=== PATIENT | male | born 1965 | race Two or more races ===

== ENCOUNTER 2023-05-09 08:19 | Outpatient (REF) | payer MEDICAID, SELFPAY ==
[2023-05-09 09:47] LABS: Anion Gap 10 (12-20); Blood Urea Nitrogen 15 mg/dL (9-16); Calcium 8.7 mg/dL (8.4-10.2); Carbon Dioxide 28 mmol/L (22-29); Chloride 105 mmol/L (96-108); Estimated Glomerular Filt Rate > 60; Glucose Random 82 mg/dL (60-115); Potassium 4.2 mmol/L (3.3-5.1); Sodium 139 mmol/L (135-145)
== END 2023-05-09 08:20 | disposition home or self-care (01) ==
LOC: HO.LAB 08:19
PROVIDERS: PCP Internal Medicine Geriatric Medicine; Visit Provider Internal Medicine Geriatric Medicine
DX: I10 Essential (primary) hypertension (principal)
CPT/HCPCS: 36415; 80048

== ENCOUNTER 2023-09-29 08:24 | Outpatient (REF) | payer MEDICAID, SELFPAY ==
[2023-09-29 11:19] LABS: MANUAL DIFF FLAG NO
[2023-09-29 11:36] LABS: Basophils Absolute Auto 0.1 X10*3/uL (0.0-0.2); Eosinophils Absolute Auto 0.1 X10*3/uL (0.0-0.4); Eosinophils Percent Auto 1.6 % (0-4); Hemoglobin 15.2 g/dl (14.0-18.0); Imm Gran Abs Auto 0.02 X10*3/uL (0.00-0.03); Imm Gran Pct Auto 0.3 % (0.0-0.4); Lymphocytes Absolute Auto 2.3 X10*3/uL (1.2-4.9); Lymphocytes Percent Auto 29.8 % (20-40); Mean Corpuscular HGB Conc 34.5 g/dl (31.0-36.0); Mean Corpuscular Hemoglobin 30.7 pg (27.0-33.0); Mean Corpuscular Volume 88.9 fL (80.0-98.0); Mean Platelet Volume 11.6 fL (9.4-12.4); Monocytes Absolute Auto 0.7 X10*3/uL (0.1-1.2); Monocytes Percent Auto 8.7 % (2-11); Neutrophils Absolute Auto 4.5 x10*3/uL (2.0-8.3); Neutrophils Percent Auto 58.6 % (45-73); Platelet Count 210 X10*3/uL (160-400); Red Blood Count 4.95 X10*6/uL (4.60-5.80); Red Cell Distribution Width 13.5 % (11.0-16.0); White Blood Count 7.7 X10*3/uL (4.8-10.8)
[2023-09-29 12:00] LABS: Alanine Aminotransferase 30 U/L (0-40); Albumin Level 4.3 g/dL (3.5-5.0); Alkaline Phosphatase 49 U/L (39-117); Anion Gap 12 (12-20); Aspartate Amino Transferase 24 U/L (5-37); Bilirubin Total 0.6 mg/dL (0.0-1.0); Blood Urea Nitrogen 14 mg/dL (9-16); Calcium 8.9 mg/dL (8.4-10.2); Carbon Dioxide 23 mmol/L (22-29); Chloride 106 mmol/L (96-108); Cholesterol 198 mg/dL (<200); Estimated Glomerular Filt Rate > 60; Glucose Random 97 mg/dL (60-115); HDL Cholesterol 55 mg/dL (>40); LDL Cholesterol Calculated 120 mg/dL (<100); Potassium 3.9 mmol/L (3.3-5.1); Sodium 137 mmol/L (135-145); Total Protein 7.3 g/dL (6.5-8.0); Triglycerides 116 mg/dL (<150)
[2023-09-29 12:06] LABS: Prostate Specific Antigen 0.83 ng/mL (<0.05-4.0)
== END 2023-09-29 08:25 | disposition home or self-care (01) ==
LOC: HO.HHCL 08:24
PROVIDERS: Visit Provider Internal Medicine Geriatric Medicine
DX: Z12.5 Encounter for screening for malignant neoplasm of prostate (principal); R73.03 Prediabetes; I10 Essential (primary) hypertension
CPT/HCPCS: 36415; 80053; 80061; 84153; 85025

== ENCOUNTER 2024-06-19 08:31 | Outpatient (REF) | payer MEDICAID, SELFPAY ==
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
--- OUTSIDE RECORDS SUMMARY | 2024-06-19 09:12 | XMS_ITS | Encounter Summary ---
Author Organization [employer] Address [address] [facility] [address] 7[address] [place] [address] Care Team Providers Care Speech Language Therapist Name Role Phone Name, Lakhwinder ALAN Primary Care Provider [phone] Encounter Details Date Type Department Care Team ([facility] st Contact Info) Description 05/31/2024 Telephone [facility] MEDICINE [address] [place], [place] [phone] Shaina Bustos, RN [address] [place], [place] [phone] Social History Tobacco Use Types Packs/Day Years [...] AM EDT documented as of this encounter Miscellaneous Notes * Telephone Encounter - Shaina Bustos RN - 05/31/2024 11:26 AM EST ----- Message from Tiffani Keating sent at 05/30/2024 10:43 AM EST ----- Regarding: as FYI Patient is scheduled for 06/12/2024 at 11:30am with . SHEEBA Nixon placed a call to patient for PVP screening and Adeline patient's 's concern is that patient self harm. Per , Patient banging forehead against the wall and had a laceration. wanted to talk to PCP about it in visit but wifeknows if she mention it in front of patient, patient will be mad at . Also patient's stated patient had a therapist one year in a half ago but the therapist left practice, is requesting to see if patient can have a therapist due to patient might be having depression. Patient and wifeis currently in [place] brief writer is not sure when they are returning to [place]. A separatemessage was sent to [facility] as well. T/C returned to pt's for status check and to encourage pt to seek care in current location. Dorinda, v/m left to return call to export team nurses. documented in this encounter Plan of Treatment Upcoming Encounters Date Type Department Care Team (Late st Contact Info) Description 06/25/2024 10:30 AM EST Telemedicine [facility] MEDICINE [address] [place] [address] documented as of this encounter Visit Diagnoses Not on filedocumented in this encounter Additional Health Concerns Assessment Noted Time PHQ-9 Depression Total Score: 0 10/23/19 24 9:09 AM EDT documented as of this encounter Care Teams Speech Language Therapist Relationship Specialty Start Date End Date Name, MD Lakhwinder [address] [place] [address] PCP - General Family Medicine 07/30/21 documented as of this encounter
--- OUTSIDE RECORDS SUMMARY | 2024-06-19 09:12 | XMS_ITS | Encounter Summary ---
Author Organization [employer] Address [address] [facility] [address] [place] [address] Care Team Providers Care Giving Officer Name Role Phone Name, Lakhwinder ALAN Primary Care Provider [phone] Reason for Visit * Reason Comments Med Refill Encounter Details Date Type Department Care Team ([facility] st Contact Info) Description 05/28/2024 Refill [facility] MEDICINE [address] [place], [place] [phone] Name, MD Lakhwinder [address] [place], [place] [phone] Mixed hyperlipidemia Social History Tobacco Use Types Packs/Day Years [...] Access Answer Date Recorded Internet Access Q1 No 01/07/2024 Internet Access Q2 I do not want or need it 05/2023 Sex and Gender Information Value Date Recorded Sex Assigned at Male 03/07/2022 10:32 AM EDT Legal Sex Male 10:32 AM EDT Gender Identity Male 03/07/2022 10:32 AM EDT Sexual Orientation Straight 03/07/2022 10 :32 AM EDT documented as of this encounter Plan of Treatment Upcoming Encounters Date Type Department Care Team (Late st Contact Info) Description 06/25/2024 10:30 AM EST Telemedicine [facility] MEDICINE [address] [place] [address] documented as of this encounter Visit Diagnoses Diagnosis Mixed hyperlipidemia documented in this encounter Additional Health Concerns Assessment Noted Time PHQ-9 Depression Total Score: 0 10/23/19 24 9:09 AM EDT documented as of this encounter Care Teams Giving Officer Relationship Specialty Start Date End Date Name, MD Lakhwinder [address] [place] [address] PCP - General Family Medicine 07/30/21 documented as of this encounter
--- OUTSIDE RECORDS SUMMARY | 2024-06-19 09:12 | XMS_ITS | Encounter Summary ---
Author Organization [employer] Address [address] [facility] 7[address] [place] [address] Care Team Providers Care Tension Worker Name Role Phone Name, Lakhwinder ALAN Primary Care Provider [phone] Reason for Visit * Reason Comments Pre-visit Planning SDOH Screening negat agnela and Tobacco screening negative Encounter Details Date Type Department Care Team (Late st Contact Info) Description 05/30/2024 Patient Outreach [facility] MEDICINE [address] [place], [place] [phone] Name, MD Lakhwinder [address] [place], [place] [phone] Pre-visit Planning (SDOH Screening negative and Tobacco screening negative) Social History Tobacco Use Types Packs/Day Years [...] AM EDT documented as of this encounter Progress Notes * Tiffani Conn - 05/30/2024 10:09 AM EST SHEEBA Orozco placed successful outbound call to patient for pre-visit planning. Patient name and confirmed. Patient confirms appt date and time, and has transportation arrangements. Biggest concern for appointment at this time is per patient self harm. Patient banging forehead against the wall and had a laceration. wanted to talk to PCP about it in visit but knows if she mention it in front of patient, patient will be mad at . Also patient's stated patient had a therapist one year in a half ago but the therapist left practice, is requesting to see if patient can have a therapist due to patient might be having depression. Message will be sent to 's nurses and also Tiera GUTIERREZ to follow up with patient. Patient advised to bring to appointment a photo id and insurance card. Appropriate screenings completed in anticipation of appointment. documented in this encounter Plan of Treatment Upcoming Encounters Date Type Department Care Team (Late st Contact Info) Description 06/25/2024 10:30 AM EST Telemedicine [facility] MEDICINE [address] [place] [address] documented as of this encounter Visit Diagnoses Not on filedocumented in this encounter Additional Health Concerns Assessment Noted Time PHQ-9 Depression Total Score: 0 10/23/19 24 9:09 AM EDT documented as of this encounter Care Teams Tension Worker Relationship Specialty Start Date End Date Name, MD Lakhwinder [address] [place] [address] PCP - General Family Medicine 07/30/21 documented as of this encounter
--- OUTSIDE RECORDS SUMMARY | 2024-06-19 09:12 | XMS_ITS | Encounter Summary ---
Author Organization [employer] Address [address] [facility] 7t [place] [address] Care Team Providers Care Private Eye Name Role Phone Name, Lakhwinder ALAN Primary Care Provider [phone] Encounter Details Date Type Department Care Team (Late st Contact Info) Description 10/07/[address] [phone] Name, MD Lakhwinder [address] [place] [phone] Social History Tobacco Use Types Packs/Day Years Used Date Smoking Tobacco: Never Smokeless Tobacco: Never Depression Answer Date Recorded Patient Health Questionnaire-2 Score 0 06/29/2022 Sex and Gender Information Value Date Recorded Sex Assigned at Male 03/07/2022 10:32 AM EDT Legal Sex Male 10:32 AM EDT Gender Identity Male 03/07/2022 10:32 AM EDT Sexual Orientation Straight 03/07/2022 10 :32 AM EDT documented as of this encounter Plan of Treatment Upcoming Encounters Date Type Department Care Team (Late st Contact Info) Description 06/25/2024 10:30 AM EST Telemedicine [address] [phone] documented as of this encounter Procedures Procedure Name Priority Date/Time Associated Diagnosis Comments HM COLONOSCOPY Routine 08/11/2022 8:20 AM EDT documented in this encounter Results * Hm Colonoscopy (08/11/2022 8:20 AM EDT) Colonoscopy Normal Normal Narrative Lorene Ga - 08/11/2022 8:20 AM EDT Recommended 5 year follow up us Historical Provider HEALTH MAINTENANCE Final Result documented in this encounter Visit Diagnoses Not on filedocumented in this encounter Care Teams Private Eye Relationship Specialty Start Date End Date Name, MD Lakhwinder [address] [place] [address] PCP - General Family Medicine 07/30/21 documented as of this encounter
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
--- OUTSIDE RECORDS SUMMARY | 2024-06-19 09:13 | XMS_ITS | Encounter Summary ---
Author Organization [employer] Address [address] [facility] [address] [place] [address] Care Team Providers Care Egg Worker Name Role Phone Name, Lakhwinder ALAN Primary Care Provider [phone] Reason for Visit * Reason Onset Date Comments Nurse Triage 06/13/2024 Encounter Details Date Type Department Care Team ([facility] st Contact Info) Description 06/13/2024 Telephone [facility] MEDICINE [address] [place], [place] [phone] Name, MD Lakhwinder [address] [place], [place] [phone] Nurse Triage Social History Tobacco Use Types Packs/Day Years [...] encounter Miscellaneous Notes * Telephone Encounter - Danyelle Pak RN - 06/13/2024 1:02 PM EST TC placed to pt. Spoke to pt . Informed of PCP message, I will add hydrochlorothiazide to his meds, continue on the same dose of lisinopril and keep checking BP at home. Pt asked if he should stop lisinopril. Advised her that the pt should continue taking the lisinopril and that the provider is adding hydrochlorothiazide. Advised to continue checking BP at home. Pt verbalized understanding and denies questions or concerns at this time. * Telephone Encounter - Lakhwinder Schaefer MD - 06/13/2024 12:16 PM EST I will add hydrochlorothiazide to his meds, continue on the same dose of lisinopril and keep checking BP at home * Telephone Encounter - Brook Turner RN - 06/13/2024 12:06 PM EST Called pt. . Pt. Saw PCP yesterday and was given a BOP cuff to monitor. This am BP 158/97 at 1130am BP is 165/107- pulse 70. No sx. At all. No chest pain, no dizziness, no headache. Pt. Is currently on Lisinopril 10mg once daily in early am. Pt. Takes BP medications between 3-4am. Pt. wondering if BP med should be increased even though pt. Was supposed to monitor BP for 1 week. Please adv ise and have blue team nurse call back with decision. Protocol Used: Blood Pressure - High (Adult) Protocol-Based Disposition: See in Office or Video Visit within 3 Days Video visit not offered Positive Triage Question: * Systolic BP >= 160 OR Diastolic >= 100 * All higher-acuity triage questions were negative * Telephone Encounter - Priya Valdez - 06/13/2024 11:48 AM EST Symptom: High Blood Pressure - Caller Reports Outcome: Schedule an urgent appointment (within 1 hour) or talk to a nurse or provider soon Reason: Getting worse The caller accepted this outcome. Pt spouse Adeline reported pt blood pressure production planner was at 158/97. She recheck bp 20 minutes agoand it is at 164/107. No symptoms. Contact Adeline at [phone] documented in this encounter Plan of Treatment Upcoming Encounters Date Type Department Care Team (Late st Contact Info) Description 06/25/2024 10:30 AM EST Telemedicine [facility] MEDICINE [address] [place] [address] documented as of this encounter Visit Diagnoses Not on filedocumented in this encounter Additional Health Concerns Assessment Noted Time PHQ-9 Depression Total Score: 0 10/23/19 24 9:09 AM EDT documented as of this encounter Care Teams Egg Worker Relationship Specialty Start Date End Date Name, MD Lakhwinder [address] [place] [address] PCP - General Family Medicine 07/30/21 documented as of this encounter
--- OUTSIDE RECORDS SUMMARY | 2024-06-19 09:13 | XMS_ITS | Encounter Summary ---
Author Organization [employer] Address [address] [place] [address] Care Team Providers Care Pile Fabric Knitter Name Role Phone Name, Lakhwinder ALAN Primary Care Provider [phone] Encounter Details Date Type Department Care Team (Latest Contact Info) Description 06/12/2024 Travel Social History Tobacco Use Types Packs/Day Years [...] Info) Description 06/25/2024 10:30 AM EST Telemedicine [facility] [address] [place] [address] documented as of this encounter Visit Diagnoses Not on filedocumented in this encounter Additional Health Concerns Assessment Noted Time PHQ-9 Depression Total Score: 0 10/23/19 24 9:09 AM EDT documented as of this encounter Care Teams Pile Fabric Knitter Relationship Specialty Start Date End Date Name, MD Lakhwinder [address] [place] [address] PCP - General Family Medicine 07/30/21 documented as of this encounter
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
[2024-06-20 14:16] LABS: MANUAL DIFF FLAG NO
[2024-06-20 14:27] LABS: Basophils Absolute Auto 0.1 X10*3/uL (0.0-0.2); Basophils Percent Auto 1.2 % (0-2); Eosinophils Absolute Auto 0.1 X10*3/uL (0.0-0.4); Eosinophils Percent Auto 1.9 % (0-4); Hematocrit 46.1 % (42.0-52.0); Hemoglobin 15.5 g/dl (14.0-18.0); Imm Gran Abs Auto 0.04 X10*3/uL (0.00-0.03); Imm Gran Pct Auto 0.6 % (0.0-0.4); Lymphocytes Absolute Auto 2.5 X10*3/uL (1.2-4.9); Lymphocytes Percent Auto 37.1 % (20-40); Mean Corpuscular HGB Conc 33.6 g/dl (31.0-36.0); Mean Corpuscular Hemoglobin 30.2 pg (27.0-33.0); Mean Corpuscular Volume 89.9 fL (80.0-98.0); Monocytes Absolute Auto 0.7 X10*3/uL (0.1-1.2); Monocytes Percent Auto 11.1 % (2-11); Neutrophils Absolute Auto 3.2 x10*3/uL (2.0-8.3); Neutrophils Percent Auto 48.1 % (45-73); Platelet Count 198 X10*3/uL (160-400); Red Blood Count 5.13 X10*6/uL (4.60-5.80); Red Cell Distribution Width 13.3 % (11.0-16.0); White Blood Count 6.7 X10*3/uL (4.8-10.8)
[2024-06-20 14:40] LABS: Alanine Aminotransferase 32 U/L (0-40); Albumin Level 4.3 g/dL (3.5-5.0); Alkaline Phosphatase 49 U/L (39-117); Anion Gap 11 (12-20); Aspartate Amino Transferase 32 U/L (5-37); Bilirubin Total 0.6 mg/dL (0.0-1.0); Blood Urea Nitrogen 10 mg/dL (9-16); Calcium 9.1 mg/dL (8.4-10.2); Carbon Dioxide 28 mmol/L (22-29); Chloride 103 mmol/L (96-108); Cholesterol 177 mg/dL (<200); Estimated Glomerular Filt Rate > 60; Glucose Random 82 mg/dL (60-115); HDL Cholesterol 48 mg/dL (>40); LDL Cholesterol Calculated 107 mg/dL (<100); Potassium 4.8 mmol/L (3.3-5.1); Sodium 137 mmol/L (135-145); Total Protein 7.5 g/dL (6.5-8.0); Triglycerides 110 mg/dL (<150)
[2024-06-20 14:49] LABS: Creatinine Urine 53.37 mg/dL; Microalbumin Urine < 5.0 mg/L
== END 2024-06-19 08:32 | disposition home or self-care (01) ==
LOC: HO.CHCLDS 08:31
PROVIDERS: Visit Provider Internal Medicine Geriatric Medicine
DX: I10 Essential (primary) hypertension (principal); E78.00 Pure hypercholesterolemia, unspecified
CPT/HCPCS: 36415; 80053; 80061; 82043; 82570; 85025

== ENCOUNTER 2024-07-01 08:40 | Outpatient (REF) | payer MEDICAID, SELFPAY ==
--- OUTSIDE RECORDS SUMMARY | 2024-07-01 09:10 | XMS_ITS | Encounter Summary ---
Author Organization [employer] Address [address] 7t [place] [address] Care Team Providers Care Software Solutions Architect Name Role Phone Name, Lakhwinder ALAN Primary Care Provider [phone] Encounter Details Date Type Department Care Team (Late st Contact Info) Description 10/07/[address] [phone] Name, MD Lakhwinder [address] [place] [address] [phone] Social History Tobacco Use Types Packs/Day Years [...] Care Team (Late st Contact Info) Description 07/04/2024 1:30 PM EST Clinical Support [address] [phone] documented as of this encounter Procedures Procedure [...] on filedocumented in this encounter Care Teams Software Solutions Architect Relationship Specialty Start Date End Date Name, MD Lakhwinder [address] [place] [address] PCP - General Family Medicine 07/30/21 documented as of this encounter
--- OUTSIDE RECORDS SUMMARY | 2024-07-01 09:10 | XMS_ITS | Encounter Summary ---
Author Organization [employer] Address [address] [facility] 7t [place] [address] Care Team Providers Care Four Slide Machine Operator Name Role Phone Name, Lakhwinder ALAN Primary Care Provider Reason for Visit * Reason Onset Date Comments Nurse Triage 06/13/2024 Encounter Details Date Type Department Care Team ([facility] st Contact Info) Description 06/13/2024 Telephone [facility] [address] [place], [place] [phone] Name, MD Lakhwinder [address] [place], [place] [phone] Nurse Triage Social History Tobacco Use Types [...] Pt spouse Adeline reported pt blood pressure legal summer intern was at 158/97. She recheck bp 20 minutes agoand it is at 164/107. No symptoms. Contact Adeline at [phone] documented in this encounter Plan of Treatment Upcoming Encounters Date Type Department Care Team (Late st Contact Info) Description 07/04/2024 1:30 PM EST Clinical Support [facility] [address] [place] [address] documented as of this encounter Visit Diagnoses Not on filedocumented in this encounter Additional Health Concerns Assessment Noted Time PHQ-9 Depression Total Score: 0 10/23/19 24 9:09 AM EDT documented as of this encounter Care Teams Four Slide Machine Operator Relationship Specialty Start Date End Date Name, MD Lakhwinder [address] [place] [address] PCP - General Family Medicine 07/30/21 documented as of this encounter
--- OUTSIDE RECORDS SUMMARY | 2024-07-01 09:10 | XMS_ITS | Encounter Summary ---
Author Organization [email or web address] Address [address] [facility] 7t [place] [address] Care Team Providers Care Clay Hoister Name Role Phone NameLakhwinder MD Primary Care Provider [phone] Reason for Referral * Consultation (Routine) - Closed Specialty Diagnoses / Procedures Referred By Beatriz t Referred To Contact Behavioral Health Diagnoses Anxiety Lakhwinder Schaefer MD [address] [place] [address] Phone: tel: fax: Referral ID Status Reason Start Date Expiration Date V isits Requested Visits Authorized [id number] Closed Specialty Services Required 06/12/2024 06/12/2025 1 1 Reason for Visit * Reason Comments Follow-up Encounter Details Date Type Department Care Team (Late st Contact Info) Description 06/12/2024 11:30 AM EST Office Visit [facility] [address] [place], [place] [phone] Lakhwinder Schaefer MD [address] [place], [place] [phone] HTN (hypertension), benign (Primary Dx); High cholesterol; [...] Description 07/04/2024 1:30 PM EST Clinical Support [facility] [address] [place] [phone] Scheduled Referrals Name Type Priority Associated Diagnoses Order Schedule Referral to Behavioral Health Outpatient Referral Routine Anxiety Expected: 06/12/2024 (Approximate), Expires: 06/12/2025 documented as of this encounter Procedures Procedure Name Priority Date/Time Associated Diagnosis Comments ALBUMIN, RANDOM URINE W/CREATININE Routine 06/19/2024 8:35 AM EST HTN (hypertension), benign High cholesterol CBC WITH AUTO DIFFERENTIAL Routine 06/19/2024 8:35 AM EST HTN (hypertension), benign High cholesterol LIPID PANEL, STANDARD Routine 06/19/2024 8:35 AM EST HTN (hypertension), benign High cholesterol COMPREHENSIVE METABOLIC PANEL Routine 06/19/2024 8:35 AM EST HTN (hypertension), benign High cholesterol documented in this encounter Results * Albumin, Random Urine W/Creatinine (06/19/2024 8:35 AM EST) Creatinine, Urine 53.37 mg/dL [facility] Microalbumin Urine <5.0 mg/L H [facility] Microalbum Creatinine Ratio Ur TNP <30 ug/mg cr [facility] Comment:Unable to calculate albumin/creatinine ratio due to lowmicroalbumin or creatinine result. Urine (Urine, Random) 06/19/2024 8:35 AM EST 06/20/2024 1:57 PM EST us Lakhwinder Name MD LAB URINE ORDERABLES Final Resul t [facility] [address] [place] [phone] * (ABNORMAL) Lipid Panel, Standard (06/19/2024 8:35 AM EST) Triglycerides 110 <150 mg/dL [facility] Comment:Desirable Triglyceri de: less than 150 mg/dLBorderline High Triglyceride 150-199 mg/dLHigh Triglyceride: 200-499 mg/dLVery High Triglyceride: greater than or equal to 5OO mg/dL Cholesterol 177 <200 mg/dL [facility] Comment:Desirable Cholestero l: less than 200 mg/dLBorderline High Cholesterol: 200-239 mg/dLHigh Cholesterol: greater than 239 mg/dL LDL Cholesterol Calculated 107(H) <100 mg/dL [facility] Comment:Desirable LDL: less than 100 mg/dLNear Optimal/Above Optimal LDL: 110- 129 mg/dLBorderline High LDL: 130-159 mg/dLHigh LDL: 160-189 mg/dLVery High LDL: greater than or equal to 190 mg/dL HDL Cholesterol 48 >40 mg/dL [facility] Comment:Desirable HDL: great er than 40 mg/dL Note: This HDL assay may give artificially low results in patients with liver disease. Blood Venous blood specimen / Unknown 06/19/2024 8:35 AM EST 06/20/2024 2:15 PM EST us Lakhwinder Name LAB BLOOD ORDERABLES Final Resul t [facility] [address] [place], [place] [phone] * (ABNORMAL) Comprehensive Metabolic Panel (06/19/2024 8:35 AM EST) Sodium 137 135 - 145 mmol/L [facility] Potassium 4.8 3.3 - 5.1 mmol/L [facility] Chloride 103 96 - 108 mmol/L [facility] Carbon Dioxide 28 22 - 29 mmol/L [facility] Anion Gap 11(L) 12 - 20 [facility] Urea Nitrogen (BUN) 10 9 - 16 mg/dL [facility] Creatinine, Serum 0.83 0.5 - 1.4 mg/dL [facility] Creatinine Clr Calc Pharmacy TNP [facility] Comment:Unable to calculate eCrCL; all parameters not provided. Estimated Glomerular Filt Rate >60 [facility] Comment:Chronic Kidney Disea se: Estimated GFR < 60 mL/min/[id number] Kidney Disease: Estimated GFR < 15 mL/min/1.73m2 Glucose 82 60 - 115 mg/dL [facility] Calcium 9.1 8.4 - 10.2 mg/dL [facility] Bilirubin, Total 0.6 0.0 - 1.0 mg/dL [facility] Aspartate Amino Transferase 32 5 - 37 U/L [facility] Alanine Aminotransferase 32 0 - 40 U/L [facility] Total Protein 7.5 6.5 - 8.0 g/dL [facility] Albumin Level 4.3 3.5 - 5.0 g/dL [facility] Alkaline Phosphatase 49 39 - 117 U/L [facility] Blood Venous blood specimen / Unknown 06/19/2024 8:35 AM EST 06/20/2024 2:15 PM EST us Lakhwinder Schaefer MD LAB BLOOD ORDERABLES Final Resul t [facility] [address] [place], [place] [phone] * (ABNORMAL) CBC auto differential (06/19/2024 8:35 AM EST) White Blood Count 6.7 4.8 - 10.8 X10*3/uL [facility] Red Blood Count 5.13 4.60 - 5.80 X10*6/uL [facility] Hemoglobin 15.5 14.0 - 18.0 g/dl [facility] Hematocrit 46.1 42.0 - 52.0 % [facility] Mean Corpuscular Volume 89.9 80.0 - 98.0 fL [facility] Mean Corpuscular Hemoglobin 30.2 27.0 - 33.0 pg [facility] Mean Corpuscular HGB Conc 33.6 31.0 - 36.0 g/dl [facility] Red Cell Distribution Width 13.3 11.0 - 16.0 % [facility] Platelet Count 198 160 - 400 X10*3/uL [facility] Mean Platelet Volume 12.0 9.4 - 12.4 fL [facility] Neutrophils Percent Auto 48.1 45 - 73 % [facility] Imm Gran Pct Auto 0.6(H) 0.0 - 0.4 % [facility] Lymphocytes Percent Auto 37.1 20 - 40 % [facility] Monocytes Percent Auto 11.1(H) 2 - 11 % [facility] Eosinophils Percent Auto 1.9 0 - 4 % [facility] Basophils Percent Auto 1.2 0 - 2 % [facility] NRBC Pct Auto 0.0 0.0 - 0.2 /100WBC [facility] Neutrophils Absolute Auto 3.2 2.0 - 8.3 x10*3/uL [facility] Imm Gran Abs Auto 0.04(H) 0.00 - 0.03 X10*3/uL [facility] Lymphocytes Absolute Auto 2.5 1.2 - 4.9 X10*3/uL [facility] Monocytes Absolute Auto 0.7 0.1 - 1.2 X10*3/uL [facility] Eosinophils Absolute Auto 0.1 0.0 - 0.4 X10*3/uL [facility] Basophils Absolute Auto 0.1 0.0 - 0.2 X10*3/uL [facility] NRBC Abs Auto 0.000 0.0 - 0.012 X10*3/uL [facility] Blood Venous blood specimen / Unknown 06/19/2024 8:35 AM EST 06/20/2024 2:15 PM EST us Lakhwinder Schaefer MD LAB BLOOD ORDERABLES Final Resul t Performing Organization Address City/State/[facility] Co de Phone Number [facility] [address] [place] [phone] documented in this encounter Visit Diagnoses Diagnosis HTN (hypertension), benign- Primary Essential hypertension, benign High cholesterol Pure hypercholesterolemia Anxiety Anxiety state, unspecified documented in this encounter Additional Health Concerns Assessment Noted Time PHQ-9 Depression Total Score: 0 10/23/19 24 9:09 AM EDT documented as of this encounter Care Teams Clay Hoister Relationship Specialty Start Date End Date Name, MD Lakhwinder [address] [place] [address] PCP - General Family Medicine 07/30/21 documented as of this encounter
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
--- OUTSIDE RECORDS SUMMARY | 2024-07-01 09:10 | XMS_ITS | Encounter Summary ---
Author Organization [employer] Address [address] 7t [place] [address] Care Team Providers Care Ice Cream Server Name Role Phone Name, Lakhwinder ALAN Primary Care Provider [phone] Encounter Details Date Type Department Care Team [...] Description 07/04/2024 1:30 PM EST Clinical Support [facility] [address] [place] [address] documented as of this encounter Visit Diagnoses Not on filedocumented in this encounter Additional Health Concerns Assessment Noted Time PHQ-9 Depression Total Score: 0 10/23/19 24 9:09 AM EDT documented as of this encounter Care Teams Ice Cream Server Relationship Specialty Start Date End Date Name, MD Lakhwinder [address] [place] [address] PCP - General Family Medicine 07/30/21 documented as of this encounter
--- OUTSIDE RECORDS SUMMARY | 2024-07-01 09:11 | XMS_ITS | Encounter Summary ---
Author Organization [employer] Address [address] [facility] [address] [place] [address] Care Team Providers Care Toppiece Chopper Name Role Phone Name, Lakhwinder ALAN Primary Care Provider [phone] Encounter Details Date Type Department Care Team ([facility] st Contact Info) Description 06/25/2024 Telephone [facility] [address] [place], [place] [phone] Name, MD Lakhwinder [address] [place], [place] [phone] Social History Tobacco Use Types Packs/Day Years [...] Telephone Encounter - Shaina Bustos RN - 06/25/2024 1:30 PM EST T/C to pt and pt's Adeline. Advised of recommendation from pcp to increase Lisinopril to 20 mg po daily, f/u with nurse in about 10 days and repeat BMP prior to next appointment. Adeline declines appt offered 07/03/24 due to conflicting appointment. Agrees to BP check with Blue team RN 07/04/24. Lab order mailed to address on file per request. documented in this encounter Plan of Treatment Upcoming Encounters Date Type Department Care Team (Late st Contact Info) Description 07/04/2024 1:30 PM EST Clinical Support [facility] [address] [place] [address] documented as of this encounter Visit Diagnoses Not on filedocumented in this encounter Additional Health Concerns Assessment Noted Time PHQ-9 Depression Total Score: 0 10/23/19 24 9:09 AM EDT documented as of this encounter Care Teams Toppiece Chopper Relationship Specialty Start Date End Date Name, MD Lakhwinder [address] [place] [address] PCP - General Family Medicine 07/30/21 documented as of this encounter
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
--- OUTSIDE RECORDS SUMMARY | 2024-07-01 09:11 | XMS_ITS | Encounter Summary ---
Author Organization [employer] Address 75 [facility] [address]t [place] [address] Care Team Providers Care Sales Representative Facility Services Name Role Phone Name, Lakhwinder ALAN Primary Care Provider [phone] Reason for Visit * Reason Comments Blood Pressure Check Encounter Details Date Type Department Care Team (Late st Contact Info) Description 06/25/2024 10:30 AM EST Telemedicine [facility] [address] [place], [place] [phone] Shaina Bustos, ANAIS [address] [place], [place] [phone] HTN (hypertension), benign Social History Tobacco Use Types Packs/Day Years [...] as of this encounter Progress Notes * Shaina Bustos, ANAIS - 06/25/2024 10:30 AM EST S: T/C to pt for nurse televisit for BP Check. Pt reports that he exercises 2-3 times per week on arowing machine. Pt reports eating rice, beans and meat and avoiding canned food. Pt denies smoking.Pt denies headache, chest pain, sob, dizziness and visual changes today. Pt requesting PCP to review lab results and advise of recommendation. O: Pt currently rx hydrochlorothiazide 12.5 mg po daily, Lisinopril 10 mg po daily. Pt states he istaking medications as rx A: Pt reports the following home BP readings since 06/12/24: 165/107 P 70; 140/84 P 69; 152/97 P 78; 155/96 P 68; 133/84 P 75; 156/94 P 72; 139/81 P 73; 158/91 P 75; 140/88 P 78; 157/88 P 85; 171/100 P73; 153/96 P 76; 146/93 P 76 (last reading taken today) P: Pt advised to take medications as rx. Pt encouraged to adhere to low sodium diet. Pt encouraged to increase amount and frequency of exercise. * Lakhwinder Jiang MD - 06/25/2024 10:30 AM EST I would recommend to increase the dose of lisinopril to 20mg. I will send the higher dose to pharmacy. Have him see you a about 10 days and repeat BMP prior to next visit. Also please let him know his recent blood work was good documented in this encounter Miscellaneous Notes * Addendum Note - Lakhwinder Jiang MD - 06/25/2024 10:30 AM ESTAddended by: LAKHWINDER JIANG on: 06/25/2024 12:51 PM Modules accepted: Orders documented in this encounter Plan of Treatment Upcoming Encounters Date Type Department Care Team (Late st Contact Info) Description 07/04/2024 1:30 PM EST Clinical Support [facility] [address] [place] [address] Scheduled Orders Name Type Priority Associated Diagnoses Orde r Schedule Basic Metabolic Panel Lab Routine HTN (hypertension), benign Expected: 06/25/2024 (Approximate), Expires: 06/25/2025 documented as of this encounter Visit Diagnoses Diagnosis HTN (hypertension), benign Essential hypertension, benign documented in this encounter Additional Health Concerns Assessment Noted Time PHQ-9 Depression Total Score: 0 10/23/19 24 9:09 AM EDT documented as of this encounter Care Teams Sales Representative Facility Services Relationship Specialty Start Date End Date Lakhwinder Jiang MD [address] [place] [address] PCP - General Family Medicine 07/30/21 documented as of this encounter
[2024-07-01 14:58] LABS: Anion Gap 10 (12-20); Blood Urea Nitrogen 12 mg/dL (9-16); Calcium 8.8 mg/dL (8.4-10.2); Carbon Dioxide 28 mmol/L (22-29); Chloride 103 mmol/L (96-108); Estimated Glomerular Filt Rate > 60; Glucose Random 90 mg/dL (60-115); Potassium 4.1 mmol/L (3.3-5.1); Sodium 137 mmol/L (135-145)
[2024-07-01 15:35] LABS: Creatinine Urine 74.54 mg/dL
== END 2024-07-01 08:41 | disposition home or self-care (01) ==
LOC: HO.CHCLDS 08:40
PROVIDERS: Visit Provider Internal Medicine Geriatric Medicine
DX: I10 Essential (primary) hypertension (principal); E78.00 Pure hypercholesterolemia, unspecified
CPT/HCPCS: 36415; 80048; 82043; 82570

== ENCOUNTER 2024-10-30 10:22 | Outpatient (REF) | payer MEDICAID, SELFPAY ==
[2024-10-30 11:56] LABS: Anion Gap 12 (12-20); Blood Urea Nitrogen 13 mg/dL (9-16); Calcium 9.7 mg/dL (8.4-10.2); Carbon Dioxide 28 mmol/L (22-29); Chloride 101 mmol/L (96-108); Estimated Glomerular Filt Rate > 60; Glucose Random 62 mg/dL (60-115); Potassium 3.7 mmol/L (3.3-5.1); Sodium 137 mmol/L (135-145)
--- OUTSIDE RECORDS SUMMARY | 2024-10-30 12:07 | XMS_ITS | Encounter Summary ---
Author Organization [employer] Address 75 [facility] [address] [place] [address] Care Team Providers Care All Terrain Vehicle Racer Name Role Phone Name, Lakhwinder ALAN Primary Care Provider [phone] Encounter Details Date Type Department Care Team (Latest Contact Info) Description 10/30/2024 Travel Social History Tobacco Use Types Packs/Day [...] Answer Date Recorded Patient Health Questionnaire-9 Score 2 07/03/2024 Patient Health Questionnaire-9 Score 2 07/03/2024 Last PHQ-9: Questionnaire Data Not on file 0 07/03/2024 Housing Stability Answer Date Recorded What is [...] Date Recorded Patient Health Questionnaire-2 Score 0 07/03/2024 Internet Access Answer Date Recorded Internet Access Q1 Yes 10/23/2024 Internet Access Q2 Not on file 10/23/2024 Sex and Gender Information Value Date Recorded Sex Assigned at Male 03/07/2022 10:32 AM EDT Legal Sex Male 10:32 AM EDT Gender Identity Male 03/07/2022 10:32 AM EDT Sexual Orientation Straight 03/07/2022 10 :32 AM EDT documented as of this encounter Plan of Treatment Not on file documented as of this encounter Visit Diagnoses Not on filedocumented in this encounter Additional Health Concerns Assessment Noted Time PHQ-9 Depression Total Score: 2 07/03/19 25 9:13 AM EST documented as of this encounter Care Teams All Terrain Vehicle Racer Relationship Specialty Start Date End Date Name, MD Lakhwinder [address] [place] [phone] PCP - General Family Medicine 07/30/21 documented as of this encounter
== END 2024-10-30 10:23 | disposition home or self-care (01) ==
LOC: HO.HHCL 10:22
PROVIDERS: PCP Internal Medicine Geriatric Medicine; Visit Provider Internal Medicine Geriatric Medicine
DX: I10 Essential (primary) hypertension (principal)
CPT/HCPCS: 36415; 80048